=== PATIENT | male | born 1995 | race Caucasian/White ===

== ENCOUNTER 2024-06-17 22:37 | Emergency (ER) | payer OTHER ==
[~2024-06-17] VITALS: Ht 182.9 cm; Wt 114.8 kg
[~2024-06-17 22:37] MED LIST: FLOMAX0.4 MG PO; HYDROCODON-ACE1 EA10 PO
--- OUTSIDE RECORDS SUMMARY | 2024-06-17 22:44 | XMS ---
PreManage Notification: LUIS ENRIQUE KATE Security Transfer Driver Events No recent Security Events currently on file CRITERIA MET - [facility] - 2 Visits in 30 Days CARE PROVIDERS DEVON GURROLA Emergency Medicine Current PHONE: [phone] [facility] Current PHONE: [phone] Faby has no Care Guidelines for this patient. Elyssa VISIT COUNT (12 MO.) 2 [facility] TOTAL 2 NOTE: Visits indicate total known visits. ED/UCC VISIT TRACKING (12 MO.) 06/17/2024 22:37 JAUN Pink [place] TYPE: Emergency COMPLAINT: - MEDICATION REFILL 05/23/2024 18:26 JAUN Pink [place] TYPE: Emergency COMPLAINT: - RIGHT ABD PAIN DIAGNOSES: - Allergy status to narcotic agent - Allergy status to penicillin - Calculus of kidney - Other obstructive and reflux uropathy - Right lower quadrant pain INPATIENT VISIT TRACKING (12 MO.) No inpatient visits to display in this time frame [email or web address]
[2024-06-17] MEDS ORDERED: HYDROCODONE BIT/ACETAMINOPHEN 5/325 MG 1 TAB HOME.PACK PO ONE (23:15)
[2024-06-17 23:25] VITALS: BP 147/87
== END 2024-06-17 23:25 | disposition home or self-care (01) ==
LOC: ED 22:37
DX: N20.0 Calculus of kidney (principal); Z88.0 Allergy status to penicillin; Z88.5 Allergy status to narcotic agent
CPT/HCPCS: 99281; A9270

== ENCOUNTER 2024-06-22 10:48 | Day surgery (SDC) | payer OTHER ==
[2024-06-16 08:10] VITALS: BP 114/77
[~2024-06-22] VITALS: Ht 182.9 cm; Wt 111.4 kg
[~2024-06-22 10:48] MED LIST changes: +CEFAZOLIN SODIUM 2 GM/20 ML SYR IV SCH; +IBLOOD GLUCOSE TEST STRIP 1 EA TEST VI PRN; +LACTATED RINGER'S 1,000 ML IV SCH; +LIDOCAINE HCL 1% 5 ML SDV INJ ONE; +TAMSULOSIN HCL0.4 MG PO; +iopamidoL 30 ML VIAL ONE
[2024-06-22 11:21] VITALS: BP 128/72
[2024-06-22] MEDS ORDERED: ondansetron HCL 4 MG/2 ML VIAL ONE (11:52)
[2024-06-22] MEDS ORDERED: KETOROLAC TROMETHAMINE 30 MG/ML VIAL ONE (11:52)
[2024-06-22] MEDS ORDERED: LIDOCAINE HCL 2% 5 ML SDV ONE (11:52)
[2024-06-22] MEDS ORDERED: KETAMINE in NS 50 MG/5 ML SYR ONE (11:52)
[2024-06-22] MEDS ORDERED: ACETAMINOPHEN 1,000 MG/100 ML VIAL ONE (11:52)
[2024-06-22] MEDS ORDERED: DEXAMETHASONE SOD PHOS 4 MG/ML VIAL ONE (11:52)
[2024-06-22] MEDS ORDERED: propofoL 200 MG/20 ML VIAL ONE (11:52)
[2024-06-22] MEDS ORDERED: fentaNYL citrate 100 MCG/2 ML VIAL ONE (11:52)
[2024-06-22] MEDS ORDERED: HYDROmorphone HCL 1 MG/ML SYR IV PRN ×2 (12:30→14:00)
[2024-06-22] MEDS ORDERED: HYDROCODONE/ACETA 5/325 TAB PO PRN (12:30)
[2024-06-22] MEDS ORDERED: KETOROLAC TROMETHAMINE 30 MG/ML VIAL IV PRN (12:30)
[2024-06-22] MEDS ORDERED: ondansetron HCL 4 MG/2 ML VIAL IV PRN ×2 (12:30→14:00)
[2024-06-22] MEDS ORDERED: PHENAZOPYRIDINE HCL 95 MG TAB PO PRN (12:45)
[2024-06-22] MEDS ORDERED: SEVOFLURANE 250 ML BTL INH ONE (13:39)
[2024-06-22 14:00] VITALS: BP 129/69
[2024-06-22] MEDS ORDERED: IBLOOD GLUCOSE TEST STRIP 1 EA TEST VI PRN (14:00)
[2024-06-22] MEDS ORDERED: fentaNYL citrate 50 MCG/ML SDV IV PRN (14:00)
[2024-06-22] MEDS ORDERED: NALOXONE HCL 0.4 MG SYR IV PRN (14:00)
--- NOTE | 2024-06-22 14:14 | NUR ---
06/22/24 1414 Georgina Velasco 1327- PT ARRIVES TO THE PACU SITTING UP IN THE BED. PT IS TAKING O2 OFF FROM THE 6L HE WAS ON. NATURAL AIRWAY. RESP EVEN AND UNLABORED. PT COMPLAINS OF NEEDING TO URINATE. URINAL PROVIDED. 50ML OF RED TINGED URINE NOTED. PT REASSURED THAT THIS IS COMMON AFTER THIS PROCEDURE. ALL MONITORS IN PLACE. PT COMPLAINS OF PAIN WITH URINATING BUT NONE WHEN NOT. PT DENIES NAUSEA. HOB INCREASED PER PT REQUEST. PT REORITENTED TO PACU. 1340- PT ATTEMPTS TO URINATE AGAIN WITHOUT SUCCESS. PT COMPLAINS OF TINGLING AND BURNING AT THE TIP OF THE PENIS. 5/10 PAIN THAT IS TOLERABLE. PT EDUCATED ON PAIN MANAGEMENT. 1355- MONITORS REMOVED. VSS. PT BROUGHT BACK TO . VITAL SIGNS OBTAINED. BEDSIDE REPORT TO JOSE GARCIA, AND PT PARENTS AT BEDSIDE. CARE FOR PT TURNED OVER AT THIS TIME. NO QUESTIONS OR CONCERNS. JOSE AWARE OF PAIN AND PAIN MANAGEMENT PLAN DISCUSSED.
[2024-06-22] MEDS ORDERED: CIPRO500 MG PO ×2 (14:38)
[2024-06-22 14:50] VITALS: BP 124/80
--- NOTE | 2024-06-22 15:33 | NUR ---
1400: PATIENT BACK IN DAY SURGERY ROOM FROM PACU. RATES PAIN 5/10. FEELS CONSTANT URGE TO VOID. PASSING SMALL AMOUNT OF BLOODY URINE PER URINAL. VS CHECKED. GIVEN ICE WATER AND SALTINE CRACKERS. MEDICATED WITH PYRIDIUM. IV SITE WNL. PARENTS IN ROOM WITH PATIENT. CALL LIGHT WITHIN REACH. 1425: PATIENT ASSISTED TO GET OOB. GAIT STEADY WALKING AROUND ROOM. PATIENT GETTING DRESSED. 1450: DISCHARGE INSTRUCTIONS GIVEN TO PATIENT AND PARENTS. VS CHECKED. IV DC'D WNL. TIP INTACT. DRESSING APPLIED. 1455: PATIENT DISCHARGED TO HOME VIA WHEELCHAIR WITH PARENTS.
[2024-06-24 15:25] LABS: CALCULI MASS 49 mg (())
== END 2024-06-22 14:53 | disposition home or self-care (01) ==
LOC: DS 10:48 → OPS 10:48 → DS 13:30 → OPS 14:53
PROVIDERS: ATTEND Urology
PROC: 0TC68ZZ Extirpation of Matter from Right Ureter, Via Natural or Artificial Opening Endoscopic (ICD-10-PCS; principal; 2024-06-22 12:00)
DX: N20.1 Calculus of ureter (principal); Z88.0 Allergy status to penicillin; Z88.5 Allergy status to narcotic agent
CPT/HCPCS: 00918; 74420; 82365; C1726; C1769; J0131; J0690; J1100; J1885; J2003; J2405; J2704; J3010; J3490; J7121; Q9967

== ENCOUNTER 2024-06-24 05:57 | Emergency (ER) | payer OTHER ==
[~2024-06-24] VITALS: Ht 182.9 cm; Wt 114.0 kg
[~2024-06-24 05:57] MED LIST changes: -CEFAZOLIN SODIUM 2 GM/20 ML SYR IV SCH; +CIPRO500 MG PO; -IBLOOD GLUCOSE TEST STRIP 1 EA TEST VI PRN; -LACTATED RINGER'S 1,000 ML IV SCH; -LIDOCAINE HCL 1% 5 ML SDV INJ ONE; -iopamidoL 30 ML VIAL ONE
--- OUTSIDE RECORDS SUMMARY | 2024-06-24 06:04 | XMS ---
PreManage Notification: LUIS ENRIQUE KATE Security Dispatcher Refinery Events No recent Security Events currently on file CRITERIA MET - [facility] - 2 Visits in 30 Days CARE PROVIDERS DEVON GURROLA Emergency Medicine Current PHONE: [phone] ARMEN [facility] Current PHONE: [phone] Faby has no Care Guidelines for this patient. Elyssa VISIT COUNT (12 MO.) [address] [place] [address] TOTAL 3 NOTE: Visits indicate total known visits. ED/UCC VISIT TRACKING (12 MO.) 06/24/2024 05:58 JA[facility] Pink [place] TYPE: Emergency COMPLAINT: - POST OP PROBLEM 06/17/2024 22:37 JAUN Pink [place] TYPE: Emergency COMPLAINT: - MEDICATION REFILL DIAGNOSES: - Allergy status to narcotic agent - Allergy status to penicillin - Calculus of kidney - Encounter for issue of repeat prescription 05/23/2024 18:26 JAUN Pink [place] TYPE: Emergency COMPLAINT: - RIGHT ABD PAIN DIAGNOSES: - Allergy status to narcotic agent - Allergy status to penicillin - Calculus of kidney - Other obstructive and reflux uropathy - Right lower quadrant pain INPATIENT VISIT TRACKING (12 MO.) No inpatient visits to display in this time frame [email or web address]
[2024-06-24] MEDS ORDERED: SODIUM CHLORIDE 0.9% 1,000 ML IV ONE (06:15)
[2024-06-24] MEDS ORDERED: KETOROLAC TROMETHAMINE 30 MG/ML VIAL IV ONE (06:15)
[2024-06-24] MEDS ORDERED: HYDROmorphone HCL 1 MG/ML SYR IV PRN (06:15)
[2024-06-24] MEDS ORDERED: ondansetron HCL 4 MG/2 ML VIAL IV ONE (06:15)
[2024-06-24 06:22] LABS: BILIRUBIN, URINE NEGATIVE (negative); BLOOD/HGB, URINE LARGE (Negative); KETONE, URINE NEGATIVE (Negative); LEUK ESTERASE, URINE NEGATIVE (negative); NITRITE, URINE NEGATIVE (negative); PH, URINE 5.5 (5-7)
[2024-06-24 06:33] LABS: BACTERIA, URINE NONE SEEN /hpf (negative); CASTS, URINE NONE SEEN \\lpf; CRYSTALS, URINE NONE SEEN (0-1+); EPITHELIAL CELLS, URINE SQUAMOUS 1+ /lpf (0-1+); RED BLOOD CELLS, URINE >50 /hpf (0-5)
[2024-06-24 06:34] LABS: COLLECTION TYPE, URINE CLEAN CATCH; REFLEX CULTURE, URINE No (No)
[2024-06-24 06:35] LABS: BASOPHILS 0.5 % (0-2); EOSINOPHILS 0.9 % (0-6); HEMATOCRIT 41.5 % (35.0-50.0); LYMPHOCYTES 26.1 % (24-44); MCH 30.9 (27-36); MCHC 33.6 g/dl (30-36); MCV 92.1 fl (81-99); MONOCYTES 12.7 % (0-12); NEUTROPHILS 59.8 % (39-80); PLATELET COUNT 199 K/uL (140-440); RBC 4.51 M/ul (4.3-5.7); RDW 13.1 (10.5-15.0)
[2024-06-24 06:49] LABS: ALBUMIN 3.6 g/dL (3.4-5.0); ALBUMIN/GLOBULIN RATIO 1.09 (1.1-2.4); BILIRUBIN, TOTAL 0.5 ng/dL (0.2-1.0); BUN/CREATININE RATIO 15.03 (6.0-28.6); CALCIUM 8.9 mg/dL (8.5-10.1); CREATININE, SERUM 1.53 mg/dL (0.70-1.30); PROTEIN, TOTAL 6.9 g/dL (6.4-8.2)
[2024-06-24] MEDS ORDERED: PERCOCET 5-3251 EACH PO (07:50)
[2024-06-24] MEDS ORDERED: KETOROLAC TROME10 MG PO (07:50)
[2024-06-24] MEDS ORDERED: ONDANSETRON ODT8 MG PO (07:50)
[2024-06-24] MEDS ORDERED: OXYCODONE/ACETAMINOPHEN 1 TAB HOME.PACK PO ONE (08:00)
[2024-06-24] MEDS ORDERED: ONDANSETRON 4 MG HOME.PACK SL ONE (08:00)
[2024-06-24 08:05] VITALS: BP 106/65
== END 2024-06-24 08:05 | disposition home or self-care (01) ==
LOC: ED 05:57
PROVIDERS: Family Medicine
DX: R10.9 Unspecified abdominal pain (principal); Z87.442 Personal history of urinary calculi; Z98.890 Other specified postprocedural states; Z88.0 Allergy status to penicillin; Z88.5 Allergy status to narcotic agent; Z79.2 Long term (current) use of antibiotics
CPT/HCPCS: 36415; 51798; 74176; 80053; 81001; 85025; 96374; 96375; 99284-25; A9270; J1171; J1885; J2405; J7030

== ENCOUNTER 2025-01-06 09:26 | Emergency (ER) | payer OTHER | END 2025-01-06 11:10 | disposition home or self-care (01) | LOC: ED 09:26 | DX: R04.0 Epistaxis (principal); Z88.0 Allergy status to penicillin; Z88.5 Allergy status to narcotic agent ==